=== PATIENT | female | born 1970 | race Two or more races ===

== ENCOUNTER 2024-08-20 09:23 | Emergency (ER) | payer MEDICAID ==
[~2024-08-20] VITALS: Ht 149.9 cm; Wt 83.0 kg
--- NOTE | 2024-08-20 10:06 | ED.PDOC ---
HPI (NEURO) HPI Comments A 54 YEAR OLD FEMALE WITH PMHX DM, HTN, ESRD ON HD, AND CHF PRESENTS TO THE ED WITH COMPLAINT OF HEADACHE X3HRS. PATIENT DENIES FEVER, CHILLS, SHORTNESS OF BREATH, CHEST PAIN, ABDOMINAL PAIN, NAUSEA, VOMITING, HEADACHE, OR OTHER COMPLAINTS. NO OTHER SYMPTOMS OR MODIFYING FACTORS AT THIS TIME. PATIENT IS ALERT, ORIENTED X 4, AND HAS STEADY GAIT. PT STARTED RECEIVING DIALYSIS TREATMENT IN 2023. PT HAD DIALYSIS TODAY AND SYMPTOMS BEGAN DURING THE TREATMENT. PER DAUGHTER, PT EXPERIENCES BACK PAIN AND HEADACHE AFTER EACH DIALYSIS TREATMENT. PT IS CURRENTLY TAKING NORCO, TYLENOL AND GABAPENTIN 300MG PO BID AT HOME. Chief Complaint: Headache Time Seen by MD: 09:55 Reviewed Notes: Nurses Notes, Medications, Allergies Information Source: Patient, Relative (Child) Mode of Arrival: Wheelchair Severity: Moderate Dizziness/Weakness Severity: Unable to do activities Headache Severity: Moderate Timing: Hours Duration: Since onset Headache Quality: Other Headache Location: Frontal Onset: At rest Circumstances: Spontaneous Symptoms: Imbalance History of: None Modifying factors: Nothing Associated Signs and Symptoms: Headache Past Medical History PAST MEDICAL HISTORY: CHF, DM, ESRD, HTN Past Medical History (Other): CHRONIC LOW BACK PAIN DDD OF LOWER BACK Surgical History: Denies all surgeries PLUG 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 HAND History: Denies all PLUG SHAPER HAND Hx Family History Family History: Unknown Social History Smoker: Non-Smoker Alcohol: Denies ETOH Use Drugs: Denies Drug Use Lives In: Home Constitutional: denies: chills, diaphoresis, fatigue, fever, malaise, sweats, weakness, others EENTM: denies: blurred vision, double vision, ear bleeding, ear discharge, ear drainage, ear pain, ear ringing, eye pain, eye redness, hearing loss, mouth pain, mouth swelling, nasal discharge, nose bleeding, nose congestion, nose pain, photophobia, tearing, throat pain, throat swelling, voice changes, others Respiratory: denies: cough, hemoptysis, orthopnea, SOB at rest, shortness of breath, SOB with excertion, stridor, wheezing, others Cardiovascular: denies: chest pain, dizzy spells, diaphoresis, Dyspnea on exertion, edema, irregular heart beat, left arm pain, lightheadedness, palpitations, PND, syncope, others Gastrointestinal: denies: abdomen distended, abdominal pain, blood streaked bowels, constipated, diarrhea, dysphagia, difficulty swallowing, hematemesis, melena, nausea, poor appetite, poor fluid intake, rectal bleeding, rectal pain, vomiting, others Genitourinary: denies: abnormal vagina bleeding, burning, dyspareunia, dysuria, flank pain, frequency, hematuria, incontinence, pain, , vagina discharge, urgency, others Neurological: reports: headache; denies: dizziness, fainting, left sided numbness, left sided weakness, numbness, paresthesia, pre-existing deficit, right sided numbness, right sided weakness, seizure, speech problems, tingling, tremors, weakness, others Musculoskeletal: reports: back pain, muscle pain; denies: gout, joint pain, joint swelling, muscle stiffness, neck pain, others Integumetry: denies: bruises, change in color, change in hair/nails, dryness, laceration, lesions, lumps, rash, wounds, others Allergic/Immunocompromised: denies: Difficulty Healing, Frequent Infections, Hives, Itching, others Hematologic/Lymphatic: denies: anemia, blood clots, easy bleeding, easy bruising, swollen glands, others Endocrine: denies: excessive hunger, excessive sweating, excessive thirst, excessive urination, flushing, intolerance to cold, intolerance to heat, un explained weight gain, unexplained weight loss, others Psychiatric: denies: anxiety, bipolar disorder, depression, hopeless, panic disorder, schizophrenia, sleepless, suicidal, others All Other Systems: Reviewed and Negative Physical Exam General Appearance: No Apparent Distress, Normal HEENT: Normal ENT Inspection, PERRL/EOMI, Pharynx Normal, TMs Normal Neck: Full Range of Motion, Non-Tender, Normal, Normal Inspection Respiratory: Chest Non-Tender, Lungs Clear, No Accessory Muscle Use, No R espiratory Distress, Normal Breath Sounds Cardiovascular: No Edema, No JVD, No Murmur, No Gallop, Normal Peripheral Pulses, Regular Rate/Rhythm Breast Exam: Deferred Gastrointestinal: No Organomegaly, Non Tender, No Pulsatile Mass, Normal Bowel Sounds, Soft Genitalia: Deferred Pelvic: Deferred Rectal: Deferred Extremities: No calf tenderness, Normal capillary refill, Normal inspection, Normal range of motion, Non-tender, No pedal edema Musculoskeletal : Location: Bilateral Extremity Location: Back Apperance: Tenderness: Moderate (MUSCLE SPASM ON LOWER BACK, NO BONY TENDERNESS, SWELLING AND DEFORMITY. ) Neurologic: Alert, manufacturing analyst II-XII nml as Tested, Headache, No Motor Deficits, Normal Affect, Normal Mood, No Sensory Deficits Cerebellar Function: Normal Reflexes: Normal Skin: Dry, Normal Color, Warm Peripheral Pulses: 2+ carotid (R), 2+ carotid (L) Lymphatic: No Adenopathy Was a procedure done? Was a procedure done?: No Differential Diagnosis (SZ) Seizure: Hyperventilation, N/A CVA: TIA General Weakness: Dehydration Headache: Cluster, Migraine, Intracerebral Hemorrhage, Mass Lesion, Sinusitis X-Ray, Labs, Meds, VS Vital Signs Date Time Temp Pulse Resp B/P (MAP) Pulse Ox O2 Delivery O2 Flow Rate FiO2 08/20/24 10:38 96 18 122/85 08/20/24 10:23 97.6 96 18 122/85 (97) 100 97.6 08/20/24 10:23 96 18 100 Room Air* 0 21 08/20/24 09:41 97.6 96 18 122/85 (97) 100 Current Medications Medications (Trade) Dose Ordered Sig/[place] Route Start Time Stop Time Status Last Admin Meperidine HCl (Demerol Injection) 50 mg ONCE ONCE IM 08/20/24 10:30 08/20/24 10:31 DC 08/20/24 10:38 Ondansetron HCl (Zofran Po) 4 mg ONCE ONCE PO 08/20/24 10:30 08/20/24 10:31 DC 08/20/24 10:37 [place] [id number] Ph: [phone] DIAGNOSTIC IMAGING Diagnostic Imaging Report : [id number] Signed PATIENT: JANETH REHMANCCT: [id number] UNIT: [id number] : 1970 LOC: ER ROOM / BED: / AGE / SEX: 54 / F ADM STATUS: REG ER SERVICE 6 ORDERING PHYSICIAN: NANDO LUIS PROCEDURE(s): HWOCT - HEAD WITHOUT CONTRAST REASON: HEADACHE ORDER NUMBER(s): [id number], ACCESSION NUMBER(s): [id number] CLINICAL INFORMATION: 54 years old, Female; HEADACHE. TECHNIQUE: Axial imaging was obtained through the brain without contrast. Coronal and sagittal reformatted images were obtained, reviewed, and stored. Images were reviewed in brain and bone windows. All CT scans at this medical facility are performed using dose modulation techniques as appropriate to a performed exam including the following: Automated exposure control was utilized; adjustment of the MA and/or KV according to patient size; and use of iterative reconstruction technique. CTDIvol = 54.12 mGy DLP = 974.6 mGy-cm COMPARISON: None FINDINGS: There is no acute intracranial hemorrhage or extraaxial fluid collection. No mass effect or midline shift. There are a few tiny parenchymal calcification seen. The ventricles and sulci are within normal limits in size for age. Basal cisterns are patent. The calvarium is unremarkable. Complete near complete opacification of the visualized portions of the maxillary sinuses with partial opacification of the ethmoid air cells. Mastoid air cells are clear. IMPRESSION: 1. No CT evidence of acute intracranial abnormality. 2. Paranasal sinus disease as described above. There are a few tiny parenchymal calcifications, which are nonspecific, but which may be seen with sequela of infectious/ inflammatory etiology, including neurocysticercosis. ATED BY: NAKUL QUICK DO DICTATED DATE/TIME: 08/20/241024 SIGNED BY: NAKUL QUICK DO SIGNED DATE/TIME: 08/20/241024 CC: X-Ray, Labs, Meds, VS Comment COURSE: EXTERNAL MEDICAL RECORDS REVIEWED: [NONE] INDEPENDENT HISTORIANS: DAUGHTER SOCIAL DETERMINANTS OF HEALTH: [NONE] LABS ORDERED: NONE REVIEWED AND INTERPRETED RESULTS: NONE IMAGING ORDERED: HEAD CT WO CONTRAST IMAGING INTERPRETED BY ME: NO ACUTE FINDINGS. TREATMENTS ORDERED: MEPERIDINE 50MG IM, ONDANSETRON 4MG PO. PT STATES SHE FEELS BETTER AFTER TREATMENT. PROCEDURES PERFORMED: NONE CRITICAL CARE TIME: NONE I HAVE DISCUSSED THE PATIENT WITH THE ATTENDING PHYSICIAN DR. MANDY SIDDIQUI AND SHE AGREES WITH THE PATIENT'S PLAN OF CARE AND DISPOSITION. GIVEN THE HISTORY AND PRESENT ILLNESS OF THE PATIENT, AFTER REVIEWING LABS, IMAGING, AND COURSE OF TREATMENT ADMINISTERED DURING THEIR ED VISIT, THERE IS LOW SUSPICION FOR RED FLAG FINDINGS. BASED ON HISTORY OF PRESENT ILLNESS, AND PHYSICAL EXAM, PATIENT WILL BE DISCHARGED HOME. DISCUSSED PLAN FOR DISCHARGE HOME WITH RX. MEDICATION WARNINGS GIVEN. SHARED DECISION MAKING: DISCUSSED WITH PATIENT THAT THEIR WORKUP WAS NORMAL. PATIENT INSTRUCTED TO FOLLOW UP WITH PRIMARY CARE PROVIDER IN 1-2 DAYS FOR RE- EVALUATION OF SYMPTOMS. PATIENT VERBALIZES UNDERSTANDING TO RETURN TO ED FOR NEW OR WORSENING SYMPTOMS OR IF FOLLOW UP WITH PCP CANNOT BE OBTAINED. PATIENT FEELS COMFORTABLE GOING HOME AT THIS TIME. ALL QUESTIONS ADDRESSED AT TIME OF DISCHARGE. Time of 1ST Reevaluation: 11:40 Reevaluation 1ST: Improved Patient Education/Counseling: Diagnosis, Treatment, Need For Follow Up Family Education/Counseling: Diagnosis, Treatment, Need For Follow Up Medical Screening: No EMC Exist At This Time Departure 1 Departure Time of Disposition: 11:40 Impression: Primary Impression: Acute headache Qualified Codes: G44.209 - Tension-type headache, unspecified, not intractable Additional Impressions: Sinus disease Chronic back pain Qualified Codes: M54.9 - Dorsalgia, unspecified; G89.29 - Other chronic pain Disposition: 01 HOME / SELF CARE / HOMELESS Condition: Stable Additional Instructions: FOLLOW-UP WITH PCP IN 1 TO 2 DAYS. TAKE MEDICATIONS PRESCRIBED. RETURN TO ED FOR ANY NEW OR WORSENING SYMPTOMS. e-Prescriptions Amoxicillin Trihydrate (Amoxicillin) 875 Mg Tab 1 TAB PO BID, #20 TAB Prov: NANDO LUIS 08/20/24 Acetaminophen (Tylenol 8 Hour Arthritis) 650 Mg Tab 650 MG PO TID, #30 TAB Prov: NANDO LUIS 08/20/24 Discharged With: Self, Relative (CHILD) Critical Care Note Critical Care Time?: No Stability Stability form required: No Heart Score Heart Score: Heart Score Response (Comments) Value History N/A 0 EKG N/A 0 Age N/A 0 Risk Factors N/A 0 Troponin N/A 0 Total 0 I personally scribed for NANDO LUIS ([email or web address]) on 08/20/24 at 10:06. Electronically submitted by [employer] ([employer]). I personally scribed for NANDO LUIS ([email or web address]) on 08/20/24 at 10:33. Electronically submitted by [employer] ([employer]). I personally scribed for NANDO LUIS ([email or web address]) on 08/20/24 at 10:34. Electronically submitted by [employer] ([email or web address]). I personally scribed for NANDO LUIS ([email or web address]) on 08/20/24 at 11:36. Electronically submitted by [employer] ([email or web address]). NANDO LUIS Aug 20, 2024 10:06
[2024-08-20 10:23] VITALS: PULSE 96; RESP 18; TEMP 97.6; O2SAT 100
--- NOTE | 2024-08-20 10:28 | DVH ---
CLINICAL INFORMATION: 54 years old, Female; HEADACHE. TECHNIQUE: Axial imaging was obtained through the brain without contrast. Coronal and sagittal refor matted images were obtained, reviewed, and stored. Images were reviewed in brain and bone windows. A ll CT scans at this medical facility are performed using dose modulation techniques as appropriate to a performed exam including the following: Automated exposure control was utilized; adjustment of the MA and/or KV according to patient size; and use of iterative reconstruction technique. CTDIvol = 54.12 mGy DLP = 974.6 mGy-cm COMPARISON: None FINDINGS: There is no acute intracranial hemorrhage or extraaxial fluid collection. No mass effect o r midline shift. There are a few tiny parenchymal calcification seen. The ventricles and sulci are wi thin normal limits in size for age. Basal cisterns are patent. The calvarium is unremarkable. Com plete near complete opacification of the visualized portions of the maxillary sinuses with partial op acification of the ethmoid air cells. Mastoid air cells are clear. IMPRESSION: 1. No CT evidence of acute intracranial abnormality. 2. Paranasal sinus disease as described above. There are a few tiny parenchymal calcifications, whic h are nonspecific, but which may be seen with sequela of infectious/ inflammatory etiology, including neurocysticercosis.
[2024-08-20] MEDS: ONDANSETRON ODT 4 MG TAB PO ONE (10:37)
[2024-08-20 10:38] VITALS: BP 122/85; PULSE 96; RESP 18
[2024-08-20] MEDS: MEPERIDINE HCL (50 MG/ML) 1 ML VIAL IM ONE (10:38)
[2024-08-20] MEDS ORDERED: AMOX875T3 PO (11:35)
[2024-08-20] MEDS ORDERED: ACET-1080 PO (11:35)
== END 2024-08-20 11:44 | disposition home or self-care (01) ==
LOC: ER 09:23 → EDBD 09:23 → ER 11:41
DX: R51.9 Headache, unspecified (principal); G89.29 Other chronic pain; E11.22 Type 2 diabetes mellitus with diabetic chronic kidney disease; I13.2 Hypertensive heart and chronic kidney disease with heart failure and with stage 5 chronic kidney disease, or end stage renal disease; I50.9 Heart failure, unspecified; N18.6 End stage renal disease; Z99.2 Dependence on renal dialysis
CPT/HCPCS: 70450; 96372; 99285; J2175; Q0162